=== PATIENT | female | born 1990 | race Caucasian/White ===

== ENCOUNTER 2019-02-20 11:09 | Inpatient (IN) | payer MEDICAID ==
[~2019-02-20] VITALS: Ht 170.2 cm; Wt 63.0 kg
[2019-02-20] MEDS ORDERED: LORA-192 PO (11:33)
[2019-02-20 11:59] LABS: AMPHET/METH SCREEN,URINE NEGATIVE (NEGATIVE); BARBITURATE SCREEN, URINE NEGATIVE (NEGATIVE); BENZODIAZEPINES SCREEN,URINE NEGATIVE (NEGATIVE); CANNABINOID SCREEN,URINE NEGATIVE (NEGATIVE); COCAINE SCREEN,URINE NEGATIVE (NEGATIVE); METHADONE SCREEN, URINE NEGATIVE (NEGATIVE); OPIATE SCREEN,URINE NEGATIVE (NEGATIVE); PHENCYCLIDINE SCREEN,URINE NEGATIVE (NEGATIVE)
[2019-02-20 12:01] LABS: BASOPHILS % (AUTO) 0.2 % (0.0-2.0); EOSINOPHILS % (AUTO) 0 % (1.0-6.0); HEMATOCRIT 33.5 % (36-46); HEMOGLOBIN 10.4 g/dL (12.0-16.0); LYMPHOCYTES # (AUTO) 1.8 K/uL (1.0-4.8); LYMPHOCYTES % (AUTO) 13.2 % (22.0-44.0); MEAN CORPUSCULAR HEMOGLOBIN 20.3 pg (26.0-34.0); MEAN CORPUSCULAR VOLUME 66 fL (80-100); MONOCYTES # (AUTO) 0.9 K/uL (0.1-1.0); MONOCYTES % (AUTO) 6.9 % (2.0-9.0); NEUTROPHILS # (AUTO) 10.6 K/uL (1.8-7.7); NEUTROPHILS % (AUTO) 79.7 % (40.0-70.0); PLATELET COUNT (AUTO) 455 K/uL (150-450); RED BLOOD CELL COUNT(AUTO) 5.11 MIL/uL (4.00-5.20); RED CELL DISTRIBUTION WIDTH 19.4 % (11.5-14.5)
[2019-02-20 12:10] LABS: ANION GAP 13 mmol/L (8-16); CALCIUM, TOTAL 8.6 mg/dL (8.8-10.5); CARBON DIOXIDE 24 mmol/L (22-29); CHLORIDE 106 mmol/L (98-107); CREATININE 0.67 mg/dL (0.60-1.30); GLOMERULAR FILTR. RATE CALC > 60 mL/min (>60); GLUCOSE,RANDOM 100 mg/dL (70-110); POTASSIUM 3.3 mmol/L (3.5-5.1); SODIUM SERUM 143 mmol/L (136-145); UREA NITROGEN, BLOOD 13 mg/dL (7-18)
[2019-02-20 12:16] LABS: ALANINE AMINOTRANSFERASE 33 U/L (12-78); ALBUMIN 3.8 g/dL (3.4-5.0); ALKALINE PHOSPHATASE 72 U/L (46-116); ASPARTATE AMINOTRANSFERASE 13 U/L (15-37); BILIRUBIN,TOTAL 0.4 mg/dL (0.1-1.0); TOTAL PROTEIN, SERUM 7.8 g/dL (6.4-8.2)
[2019-02-20] MEDS ORDERED: ZOLPIDEM TARTRATE 10 MG TABLET PO PRN (13:45)
[2019-02-20 18:42] VITALS: BP 101/59
[2019-02-20] MEDS ORDERED: ALBUTEROL SULFATE HFA 90 MCG/PUFF 8 GM INHALER IH PRN (20:00)
[2019-02-20] MEDS ORDERED: GuaiFENesin/D-METHORPHAN [SUGAR-FREE] 200-20MG/10 ML SYRUP UDCUP PO PRN (20:00)
[2019-02-20] MEDS ORDERED: LOPERAMIDE HCL 2 MG CAPSULE PO PRN (20:00)
[2019-02-20] MEDS ORDERED: IBUPROFEN 400 MG TABLET PO PRN (20:00)
[2019-02-20] MEDS ORDERED: DOCUSATE SODIUM 100 MG CAPSULE PO PRN (20:00)
[2019-02-20] MEDS ORDERED: MAGNESIUM HYDROXIDE SUSPENSION 30 ML UDCUP PO PRN (20:00)
[2019-02-20] MEDS ORDERED: MAG HYDROX/AL HYDROX/SIMETH ES 30 ML SUSPENSION UDCUP PO PRN (20:00)
[2019-02-20] MEDS ORDERED: NICOTINE 14 MG/24 HOUR PATCH TD PRN (20:00)
[2019-02-20] MEDS ORDERED: PETROLATUM,WHITE 28 GM JELLY TP PRN (20:00)
[2019-02-20] MEDS ORDERED: CloNIDine HCL 0.1 MG TABLET PO PRN (20:00)
[2019-02-20] MEDS ORDERED: ACETAMINOPHEN 325 MG TABLET PO PRN (20:00)
[2019-02-20] MEDS ORDERED: ONDANSETRON HCL 4 MG TABLET PO PRN (20:00)
[2019-02-21 00:30] VITALS: BP 123/84
[2019-02-21] MEDS ORDERED: INFLUENZA VIRUS VACCINE QVS 2019-20 (3YR+)/PF 60 MCG/0.5 ML SYRINGE IM ONE (02:00)
[2019-02-21] MEDS: LORazepam 2 MG TABLET PO PRN ×2 (05:14→15:44)
[2019-02-21 08:07] VITALS: BP 142/86
[2019-02-21 08:09] LABS: CHOL/HDL RATIO 3.3 (3.9-5.7)
[2019-02-21] MEDS: HALOPERIDOL 5 MG TABLET PO PRN (14:31)
[2019-02-21] MEDS ORDERED: POTASSIUM CHLORIDE 20 MEQ ER TABLET PO ONE (14:45)
[2019-02-21] MEDS: FERROUS SULFATE 325 MG EC TABLET PO SCH (16:05)
[2019-02-21] MEDS: OLANZapine 5 MG RAPDIS TABLET PO SCH (16:05)
[2019-02-21 16:29] VITALS: BP 122/90
[2019-02-22 04:15] VITALS: BP 128/82
[2019-02-22] MEDS: LORazepam 2 MG TABLET PO PRN ×3 (05:49→16:58)
[2019-02-22] MEDS: HALOPERIDOL 5 MG TABLET PO PRN (05:49)
[2019-02-22] MEDS: FERROUS SULFATE 325 MG EC TABLET PO SCH ×2 (06:46→16:57)
[2019-02-22] MEDS: OLANZapine 5 MG RAPDIS TABLET PO SCH ×2 (08:04→16:57)
[2019-02-22 08:24] VITALS: BP 140/80
[2019-02-22 16:09] VITALS: BP 128/77
[2019-02-23 05:24] VITALS: BP 121/96
[2019-02-23] MEDS: HALOPERIDOL 5 MG TABLET PO PRN (05:27)
[2019-02-23] MEDS: FERROUS SULFATE 325 MG EC TABLET PO SCH ×2 (06:48→16:20)
[2019-02-23] MEDS: OLANZapine 5 MG RAPDIS TABLET PO SCH (08:10)
[2019-02-23] MEDS: LORazepam 2 MG TABLET PO PRN (08:10)
[2019-02-23 08:33] VITALS: BP 128/106
[2019-02-23 09:53] VITALS: BP 137/72
[2019-02-23] MEDS ORDERED: OLANZapine 10 MG RAPDIS TABLET PO SCH (11:45)
[2019-02-23 16:18] VITALS: BP 116/94
[2019-02-23] MEDS: OLANZapine 10 MG RAPDIS TABLET PO SCH (16:20)
[2019-02-24 00:36] VITALS: BP 122/72
[2019-02-24] MEDS: HALOPERIDOL 5 MG TABLET PO PRN ×2 (02:48→10:18)
[2019-02-24 05:01] VITALS: BP 120/82
[2019-02-24] MEDS: LORazepam 2 MG TABLET PO PRN ×2 (05:04→13:37)
[2019-02-24] MEDS: FERROUS SULFATE 325 MG EC TABLET PO SCH ×2 (06:51→16:15)
[2019-02-24 07:29] LABS: BASOPHILS % (AUTO) 0.4 % (0.0-2.0); EOSINOPHILS % (AUTO) 0.8 % (1.0-6.0); HEMATOCRIT 33.9 % (36-46); HEMOGLOBIN 10.6 g/dL (12.0-16.0); LYMPHOCYTES # (AUTO) 1.8 K/uL (1.0-4.8); LYMPHOCYTES % (AUTO) 21.5 % (22.0-44.0); MEAN CORPUSCULAR HGB CONC 31.3 G/dL (31.0-37.0); MEAN CORPUSCULAR VOLUME 67 fL (80-100); MONOCYTES # (AUTO) 0.4 K/uL (0.1-1.0); MONOCYTES % (AUTO) 5.2 % (2.0-9.0); NEUTROPHILS # (AUTO) 5.9 K/uL (1.8-7.7); NEUTROPHILS % (AUTO) 72.1 % (40.0-70.0); PLATELET COUNT (AUTO) 442 K/uL (150-450); RED BLOOD CELL COUNT(AUTO) 5.05 MIL/uL (4.00-5.20); RED CELL DISTRIBUTION WIDTH 19.6 % (11.5-14.5)
[2019-02-24 08:11] VITALS: BP 132/80
[2019-02-24] MEDS: OLANZapine 10 MG RAPDIS TABLET PO SCH ×2 (08:17→16:15)
[2019-02-24 16:21] VITALS: BP 119/89
[2019-02-25] MEDS: HALOPERIDOL 5 MG TABLET PO PRN (00:03)
[2019-02-25 00:13] VITALS: BP 138/98
[2019-02-25] MEDS: LORazepam 2 MG TABLET PO PRN ×2 (00:18→12:21)
[2019-02-25] MEDS: FERROUS SULFATE 325 MG EC TABLET PO SCH ×3 (06:57→16:37)
[2019-02-25] MEDS: OLANZapine 10 MG RAPDIS TABLET PO SCH ×2 (08:14→16:36)
[2019-02-25 08:21] VITALS: BP 150/99
[2019-02-25 11:27] VITALS: BP 122/86
[2019-02-25 16:16] VITALS: BP 134/84
[2019-02-26 01:01] VITALS: BP 142/95
[2019-02-26 04:46] VITALS: BP 120/61
[2019-02-26] MEDS: LORazepam 2 MG TABLET PO PRN ×3 (04:49→21:03)
[2019-02-26] MEDS: HALOPERIDOL 5 MG TABLET PO PRN ×3 (06:19→21:04)
[2019-02-26] MEDS: FERROUS SULFATE 325 MG EC TABLET PO SCH ×3 (06:48→16:23)
[2019-02-26 08:06] VITALS: BP 131/95
[2019-02-26] MEDS: OLANZapine 5 MG RAPDIS TABLET PO SCH ×2 (08:21→16:19)
[2019-02-26 16:04] VITALS: BP 121/80
[2019-02-26 21:00] VITALS: BP 110/61
[2019-02-27] MEDS: HALOPERIDOL 5 MG TABLET PO PRN (04:48)
[2019-02-27] MEDS: LORazepam 2 MG TABLET PO PRN ×2 (04:48→09:58)
[2019-02-27 05:01] VITALS: BP 117/62
[2019-02-27] MEDS: FERROUS SULFATE 325 MG EC TABLET PO SCH ×3 (06:39→16:32)
[2019-02-27 08:07] VITALS: BP 134/74
[2019-02-27] MEDS: OLANZapine 5 MG RAPDIS TABLET PO SCH ×2 (08:16→16:11)
[2019-02-27] MEDS ORDERED: DiphenhydrAMINE HCL 50 MG/ML VIAL ONE (10:38)
[2019-02-27] MEDS ORDERED: HALOPERIDOL LACTATE 5 MG/ML VIAL ONE (10:38)
[2019-02-27] MEDS ORDERED: LORazepam 2 MG/ML VIAL ONE (10:38)
[2019-02-27] MEDS ORDERED: HALOPERIDOL LACTATE 5 MG/ML VIAL IM SCH ×2 (10:45)
[2019-02-27] MEDS ORDERED: LORazepam 2 MG/ML VIAL IM ONE (10:45)
[2019-02-27] MEDS ORDERED: DiphenhydrAMINE HCL 50 MG/ML VIAL IM ONE (10:45)
[2019-02-27] MEDS ORDERED: HALOPERIDOL LACTATE 5 MG/ML VIAL IM ONE (10:45)
[2019-02-27] MEDS: GABAPENTIN 300 MG CAPSULE PO SCH ×2 (12:10→16:11)
[2019-02-27 16:09] VITALS: BP 133/77
[2019-02-28 00:04] VITALS: BP 134/82
[2019-02-28] MEDS: HALOPERIDOL 5 MG TABLET PO PRN (06:15)
[2019-02-28] MEDS: FERROUS SULFATE 325 MG EC TABLET PO SCH ×2 (06:15→12:10)
[2019-02-28] MEDS: LORazepam 2 MG TABLET PO PRN (06:15)
[2019-02-28 08:48] VITALS: BP 123/79
[2019-02-28] MEDS: OLANZapine 5 MG RAPDIS TABLET PO SCH (10:07)
[2019-02-28] MEDS: GABAPENTIN 300 MG CAPSULE PO SCH (10:07)
[2019-02-28] MEDS ORDERED: GABA-531 PO (12:02)
[2019-02-28] MEDS ORDERED: FERR-89 PO (12:03)
[2019-02-28] MEDS ORDERED: OLAN5TAB40 PO (12:03)
== END 2019-02-28 13:50 | disposition home or self-care (01) | DRG 750 ==
LOC: EMS 11:12 → B2S 14:48
PROVIDERS: ADMIT Psychiatry & Neurology Psychiatry; ATTEND Psychiatry & Neurology Psychiatry
DX: F20.9 Schizophrenia, unspecified (principal); D64.9 Anemia, unspecified; D72.829 Elevated white blood cell count, unspecified; E87.6 Hypokalemia; F41.9 Anxiety disorder, unspecified
CPT/HCPCS: 70450; 84132; G0480; J1200; J1630; J2060

== ENCOUNTER 2019-03-03 07:51 | Emergency (ER) | payer MEDICAID, OTHER ==
[~2019-03-03 07:51] MED LIST: FERR-89 PO; GABA-531 PO; OLAN5TAB40 PO
== END 2019-03-03 08:24 | disposition left against medical advice (07) ==
LOC: EMS 07:51
DX: Z76.0 Encounter for issue of repeat prescription (principal); Z53.21 Procedure and treatment not carried out due to patient leaving prior to being seen by health care provider